=== PATIENT | male | born 1980 | race Caucasian/White ===

== ENCOUNTER 2017-03-16 11:52 | Emergency (ER) | payer BC ==
[2017-03-16 13:50] VITALS: BP 121/78
--- NOTE | 2017-03-16 14:23 | ED ---
Throat Pain/Nasal Congestion - HPI Summary HPI Summary: Patient presents to ED with CC of right sided facial swelling immediately while eating this afternoon. He denies pain or known broken tooth. He denies previous symptoms like this. He denies medications or allergies. Swelling was worse immediately after eating and now has dissipated. He endorses right eye "popping" since this afternoon He denies any pain, but states he felt some discomfort last evening there in the right cheek, but again there was no swelling. Patient is otherwise healthy and denies fever, GANDHI, N/V/C/D, or ear pain. - History of Current Complaint Chief Complaint: EDGeneral Time Seen by Provider: 03/16/17 12:19 Hx Obtained From: Patient Onset/Duration: Sudden Onset Severity: Mild - Epiglottits Risk Factors Epiglottis Risk Factors: Negative - Allergies/Home Medications Allergies/Adverse Reactions: Allergies Allergy/AdvReac Type Severity Reaction Status Date / Time No Known Allergies Allergy Verified 04/01/16 15:15 PMH/Surg Hx/FS Hx/Imm Hx Previously Healthy: Yes Endocrine/Hematology History: Denies: Hx Diabetes, Hx Thyroid Disease Cardiovascular History: Denies: Hx Hypertension Respiratory History: Reports: Hx Asthma Denies: Hx Chronic Obstructive Pulmonary Disease (COPD) GI History: Denies: Hx Ulcer - Surgical History Surgery Procedure, Year, and Place: knee surgeris x 2 - 2001, 2010 Hx Anesthesia Reactions: No - Immunization History Hx Pertussis Vaccination: No Immunizations Up to Date: No Infectious Disease History: No Infectious Disease History: Denies: Hx Hepatitis, Hx Human Immunodeficiency Virus (HIV), Traveled Outside the [place] in Last 30 Days - Family History Known Family History: Positive: None - Social History Occupation: Employed Full-time Lives: With Family Alcohol Use: Weekly Hx Substance Use: Yes Substance Use Type: Reports: Marijuana Hx Tobacco Use: No Smoking Status (MU): Never Smoked Tobacco Do You Chew or Dip Tobacco: No Have You Chewed or Dipped Tobacco in the LAST YEAR: No Review of Systems Constitutional: Negative Eyes: Negative Positive: Other - right sided facial swelling Cardiovascular: Negative Respiratory: Negative Positive: no symptoms reported, see HPI Musculoskeletal: Negative Skin: Negative Psychological: Normal All Other Systems Reviewed And Are Negative: Yes Physical Exam Triage Information Reviewed: Yes Vital Signs On Initial Exam: Initial Vitals Temp Pulse Resp BP Pulse Ox 97.2 F 82 20 129/72 100 03/16/17 12:00 03/16/17 12:00 03/16/17 12:00 03/16/17 12:00 03/16/17 12:00 Vital Signs Reviewed: Yes Appearance: Positive: Well-Appearing, No Pain Distress, Well-Nourished Skin: Positive: Warm, Skin Color Reflects Adequate Perfusion Head/Face: Positive: Other - right sided facial swelling without evidence of abscess or infection. Eyes: Positive: EOMI, ZOHREH, Conjunctiva Clear ENT: Positive: Pharynx normal, TMs normal Neck: Positive: Supple, No Lymphadenopathy Respiratory/Lung Sounds: Positive: Clear to Auscultation, Breath Sounds Present Cardiovascular: Positive: RRR, Pulses are Symmetrical in both Upper and Lower Extremities Musculoskeletal: Positive: Strength/ROM Intact Neurological: Positive: Normal, Sensory/Motor Intact Psychiatric: Positive: Normal AVPU Assessment: Alert Diagnostics - Vital Signs Vital Signs Temp Pulse Resp BP Pulse Ox 03/16/17 13:25 97.4 F 82 16 121/78 03/16/17 12:02 97.1 F 87 20 129/72 99 03/16/17 12:00 97.2 F 82 20 129/72 100 - Laboratory Lab Statement: Any lab studies that have been ordered have been reviewed, and results considered in the medical decision making process. EENT Course/Dx - Course Course Of Treatment: Patient presents with slight right sided facial swelling without pain or erythema immediately while eating today. He states he had some discomfort last night over the right cheek, but had no swelling. Swelling after lunch today was worse while eating and immediate, but has now improved with only slight swelling. Patient is encouraged to take lemon drops, sour candies, orange juice and antibiotics as prescribed. Explained to patient this is likely a stone - sialadenitis and will take several days to dissipate. He agrees to follow up with PCP as needed and OK for discharge. - Differential Diagnoses Differential Diagnoses: Dental Abscess, Dental Caries, Mandibular/Maxillary Trauma, Odontogenic Pain, Pharyngitis, Tonsilitis, Other - sialadenitis - Diagnoses Provider Diagnoses: PAROTID DUCT OBSTRUCTION,SIALOADENITIS Discharge - Discharge Plan Condition: Stable Disposition: HOME Prescriptions: Amoxicillin/Clavulanate TAB* [Augmentin TAB 875*] 875 mg PO BID #20 tab MDD 2 Patient Education Materials: Parotid Duct Obstruction (ED), Sialoadenitis (ED) Referrals: Maggi Edwards MD [Primary Care Provider] - Additional Instructions: Take antibiotics as prescribed. Massage area several times per day. Biotene mouth wash for dry mouth Drink plenty of fluids. Lemon drops, sour candy, orange juice
== END 2017-03-16 13:25 | disposition home or self-care (01) ==
LOC: ED 11:52
DX: K11.20 Sialoadenitis, unspecified (principal); K11.8 Other diseases of salivary glands; R60.0 Localized edema
CPT/HCPCS: 99282